=== PATIENT | female | born 1965 | race Caucasian/White ===

== ENCOUNTER 2017-12-31 12:49 | Outpatient (CLI) | payer OTHER ==
[2016-02-18 22:36] VITALS: O2SAT 97
== END 2017-12-31 12:50 | disposition home or self-care (01) | DRG 556 ==
LOC: CONVCARE 12:49
PROVIDERS: ATTEND Orthopaedic Surgery
DX: M79.672 Pain in left foot (principal); M79.671 Pain in right foot; M65.272 Calcific tendinitis, left ankle and foot; M65.271 Calcific tendinitis, right ankle and foot
CPT/HCPCS: 73650